=== PATIENT | female | born 1975 | race African-American/Black ===

== ENCOUNTER → 2016-04-09 | Outpatient (CLI) | payer OTHER ==
[~2016-04-09] MED LIST: ALPR.25 PO; ATEN-100 PO; ATEN25TA PO; HYDR-3583 PO; LORC10TA24 PO; PRAV40TA2 PO; SUVO1TAB4 PO; ZANTTAB9 PO
[2016-04-09 12:44] LABS: MEAN CELL VOLUME 67.5 FL (80.0-100.0); MEAN CORPUSCULAR HEMOGLOBIN 21.8 PG (27.0-34.0); MEAN CORPUSCULAR HGB CONC 32.3 % (32.0-36.0); PLATELET COUNT 262 TH/MM3 (150-450); RED BLOOD COUNT 5.63 MIL/MM3 (4.00-5.30); RED CELL DISTRIBUTION WIDTH 16.2 % (11.6-17.2); WHITE BLOOD COUNT 10.4 TH/MM3 (4.0-11.0)
[2016-04-09 12:46] LABS: REVIEW FLAG FINAL
[2016-04-09 13:01] LABS: CHLORIDE 105 MEQ/L (98-107); POTASSIUM 4.2 MEQ/L (3.5-5.1); SODIUM (NA) 140 MEQ/L (136-145)
[2016-04-09 13:10] LABS: ANION GAP 7 MEQ/L (5-15); BICARBONATE 28.1 MEQ/L (21.0-32.0)
[2016-04-09 13:12] LABS: BHCG SCREEN QUALITATIVE LESS THAN 1 MIU/ML (0-5)
== END ==
LOC: CPRE 12:04
PROVIDERS: ATTEND Plastic Surgery
DX: Z01.810 Encounter for preprocedural cardiovascular examination (principal); Z01.812 Encounter for preprocedural laboratory examination; N62 Hypertrophy of breast
CPT/HCPCS: 36415; 80051; 84703; 85027

== ENCOUNTER 2016-04-12 10:54 | Observation (INO) | payer OTHER ==
[~2016-04-12] VITALS: Ht 167.6 cm; Wt 103.3 kg
--- NOTE | 2016-04-12 09:56 | MH ---
cc: CHARLINE BECK M.D. DATE OF ADMISSION: 04/12/2016 CHIEF COMPLAINT Bilateral very large breast. The patient desiring elective breast reduction. HISTORY OF PRESENT ILLNESS This is a 40-year-old black female who has had very large breasts ever since she was a teenager. She has had two pregnancies, two children, age 21 and 16. She breast fed them nearly 2 years. Positive family history of breast cancer in maternal grandmother. Her mammogram has been okay in the past and the last one was in September 2015. The patient does self exams and no issue with health otherwise. She wishes to have the breast reduced. Her symptoms include heavy breast pulling on the chest, neck, shoulders and upper back and discomfort with daily activities. The patient has been wearing supportive bras, has taken [id number] pain medication as needed. She does complain of numbness in the arms at times. The patient currently is menopausal, no current issues with osteoporosis. The patient underwent detailed explanation of the procedure including diagrams, photographs, before and after pictures and the approximate volume of the breast to be removed estimated at 600 grams on each side. The possible risks and complications including those during surgery, anesthesia, possibility of bleeding, damage to the surrounding structures in the area of surgery, possible loss of nipple-areolar sensation, the intraoperative bleeding, also postoperative bleeding, hematoma, seroma, infection, skin flap necrosis, breast tissue necrosis, wound dehiscence, wound healing problems, possible chronic pain. Again, loss of nipple-areolar sensation or hypersensitivity, possible atrophic scar, hypertrophic scar, keloid formation, pigmented scars and asymmetry, future breast glandular ptosis with possibility of visual mismatch to the nipple and the breast and possible future surgeries for correction of the appearance which may not be covered by her health insurance. The patient understands the overall process may take several months to provide a final outcome. She is willing to go ahead with the surgery. The future mammographic screening will need to be resumed several months to a year after the surgery in order to provide a new baseline. Also if the pathology report on the breast tissue removed comes out to be of high oncologic risk, she will need to be treated further by an appropriate surgeon. PAST MEDICAL HISTORY 1. The patient's past medical history is negative for diabetes and heart conditions. 2. She does have a high blood pressure and high cholesterol. The highest blood pressure recorded was during her over 200 at that time. Currently under control with medications. 3. The patient does have varicose veins. 4. She is currently menopausal. No other major issues. MEDICATIONS Current medications include: 1. Atenolol. 2. Diet pills. ALLERGIES She is not allergic to any medications. SOCIAL HISTORY Social history is negative for smoking, never smoked. No alcohol or drug abuse. No HIV or hepatitis risk factors. PHYSICAL EXAMINATION GENERAL: The examination shows a 40-year-old black female with stable vital signs. The patient's height is 5 feet 6 inches tall, weight 225 pounds. HEAD/NECK: Head and neck shows clear sclerae. Equal pupils. Trachea is midline. No thyromegaly. Normal neck movements. CHEST: Chest has good expansion. Normal breathing. Normal heart sounds and breath sounds. EXTREMITIES: Upper and lower extremities are grossly intact. VITAL SIGNS: Vitals are normal. BREAST: The breast shows bilaterally large breasts with approximate volume at sitting 1200 to 1500 grams. The breasts do not have any dominant masses. Nipples are normal. No nipple discharge. The measurements show neck to the nipple distance 35.5 cm on the right, 31.5 on the left, nipple to inframammary fold 14.5 on the right and 15.0 on the left, nipple to the midline 14.5 on the right and 13.5 on the left. Chest transverse diameter is 20 cm on each side. Neck to the medial fold is 18 cm and neck to the inframammary fold is 24 cm on both sides. Medial breast folds are less than 1 cm apart, the medial fold to the nipple distance is 22 on the right and 18 on the left. Approximate volume on the right is 1600 grams, approximate volume on the left is 1400 grams. No skin rashes. No current infection. CLINICAL IMPRESSION Bilateral macromastia. PLAN Bilateral reduction mammoplasty. Laboratory tests will be reviewed and available on the chart. signed, not fully reviewed MD BONNIE Gonzales/LAURA /9:00 AM /9:29 AM [facility]
[~2016-04-12 10:54] MED LIST changes: -ALPR.25 PO; -ATEN-100 PO; -HYDR-3583 PO; -SUVO1TAB4 PO
[2016-04-12] MEDS ORDERED: PHENYLEPH/NS 1000 MCG/10 ML SYR IV ONE (12:00)
[2016-04-12] MEDS ORDERED: METOPROLOL TARTRATE 25 MG TAB PO PRN (12:00)
[2016-04-12] MEDS ORDERED: KETOROLAC TROMETHAMINE 60 MG/2 ML (IM) VIAL IM ONE (12:00)
[2016-04-12] MEDS ORDERED: ceFAZolin 1,000 MG/NS 100 ML IV SCH ×2 (12:00)
[2016-04-12] MEDS ORDERED: LACTATED RINGER'S 1000 ML INJ 1,000 ML IV ONE (12:00)
[2016-04-12] MEDS ORDERED: INSULIN HUMAN REGULAR 1,000 UNITS/10 ML VIAL SQ PRN (12:00)
[2016-04-12] MEDS ORDERED: SODIUM CHLORID 0.9% 500 ML IV SCH (12:00)
[2016-04-12] MEDS ORDERED: LACTATED RINGER'S 1000 ML IV SCH (12:00)
[2016-04-12] MEDS ORDERED: ePHEDrine/NS 25 MG/5 ML SYR IV ONE (12:00)
[2016-04-12] MEDS ORDERED: ONDANSETRON HCL 4 MG/2 ML VIAL IV PUSH ONE (12:00)
[2016-04-12] MEDS ORDERED: PROPOFOL 200 MG/20 ML AMP IV ONE (12:00)
[2016-04-12] MEDS ORDERED: NEOSTIGMINE 3 MG/3 ML SYR IV ONE (12:00)
[2016-04-12 12:02] VITALS: BP 139/98; PULSE 72; RESP 20; TEMP 98.3; O2SAT 98
[2016-04-12] MEDS ORDERED: ceFAZolin INJ 1,000 MG VIAL ONE (12:13)
[2016-04-12] MEDS ORDERED: SODIUM BICARBONATE 8.4% INJ 50 MEQ/50 ML SYR ONE (12:13)
[2016-04-12] MEDS ORDERED: LIDOCAINE 1%/EPINEPHrine 1:100,000 SOLN 30 ML VIAL ONE ×2 (12:13→12:16)
[2016-04-12] MEDS ORDERED: MIDAZOLAM HCL 2 MG/2 ML VIAL ONE (13:04)
[2016-04-12] MEDS ORDERED: FAMOTIDINE 20 MG/2 ML VIAL ONE (13:04)
[2016-04-12] MEDS ORDERED: EPINEPHrine HCL (1:1000) 30 MG/30 ML VIAL ONE (13:42)
[2016-04-12] MEDS ORDERED: SODIUM CHLOR 0.9% 1000 ML BAG XX ONE (13:51)
[2016-04-12] MEDS ORDERED: ceFAZolin INJ 1,000 MG VIAL IV ONE (16:30)
[2016-04-12] MEDS ORDERED: HYDROmorphone HCL PF 1 MG/ML VIAL IV PUSH PRN (17:30)
[2016-04-12] MEDS ORDERED: ACETAMINOPHEN/HYDROcodone 325 MG/10 MG TAB PO PRN (17:30)
[2016-04-12] MEDS ORDERED: fentaNYL CITRATE 250 MCG/5 ML AMP ONE ×2 (17:48→17:49)
[2016-04-12] MEDS: LACTATED RINGER'S 1000 ML INJ 1,000 ML IV SCH (18:00)
[2016-04-12] MEDS ORDERED: DO NOT ADM ANY ANTICOAGULANT DRUGS XX PRN (18:00)
[2016-04-12] MEDS ORDERED: ceFAZolin 2 GM PREMIX 50 ML IV SCH (18:00)
[2016-04-12] MEDS ORDERED: *LABETALOL HCL 100 MG/20 ML VIAL PERIprocedural Use ONLY ONE (18:20)
[2016-04-12] MEDS ORDERED: *ONDANSETRON 4 MG VIAL PERIprocedural Use ONLY ONE (18:53)
[2016-04-12] MEDS: ceFAZolin 2 GM PREMIX 50 ML IV SCH (19:00)
[2016-04-12] MEDS ORDERED: *HYDROmorphone PF 1 MG VIAL PERIprocedural Use ONLY ONE (19:05)
[2016-04-12 20:00] VITALS: BP 164/87; PULSE 68; RESP 20; TEMP 97; O2SAT 100
[2016-04-12] MEDS: PROMETHAZINE HCL 25 MG TAB PO PRN (22:23)
[2016-04-13] VITALS: BP 140/66; PULSE 61; RESP 20; TEMP 96.1; O2SAT 99
[2016-04-13 04:00] VITALS: BP 111/63; PULSE 64; RESP 22; TEMP 97.4; O2SAT 100
[2016-04-13] MEDS: LACTATED RINGER'S 1000 ML INJ 1,000 ML IV SCH ×2 (04:36→12:44)
[2016-04-13] MEDS: ceFAZolin 2 GM PREMIX 50 ML IV SCH ×2 (04:36→12:39)
[2016-04-13 08:00] VITALS: BP 133/86; PULSE 89; RESP 18; TEMP 98.8; O2SAT 99
[2016-04-13] MEDS: PROMETHAZINE HCL 25 MG TAB PO PRN (08:20)
--- NOTE | 2016-04-13 08:32 | EKG ---
Date Performed: 04/12/2016 Time Performed: 12:18:40 PTAGE: 40 years EKG: Sinus rhythm WITH SINUS ARRHYTHMIA BORDERLINE LEFT AXIS DEVIATION BORDERLINE ECG PREVIOUS TRACING : 10/01/2008 12.30 Compared to prior tracing no significant change DOCTOR: Rahat Mancini Interpretating Date/Time 04/13/2016 08:31:02
--- NOTE | 2016-04-13 09:32 | PD.PLAS.PN ---
Subjective Remarks Patient doing very well. Walking around the hallways Very little to no pain Happy with shape and symmetry / volume. Breasts soft, no hematoma, flaps look good. Nipples sensitive to touch on Right, left side not so much. DENY drains to stay 3-5 days. DC home today FU in office Tuesday Vital Signs Date Time Temp Pulse Resp B/P Pulse Ox O2 Delivery O2 Flow Rate FiO2 04/13/16 04:00 97.4 64 22 111/63 100 04/13/16 00:00 96.1 61 20 140/66 99 04/12/16 20:00 97.0 68 20 164/87 100 04/12/16 18:30 64 16 155/85 98 Room Air 04/12/16 18:15 66 16 170/87 96 Room Air 04/12/16 18:00 70 16 151/80 96 Room Air 04/12/16 17:30 97.5 74 16 140/88 97 04/12/16 12:02 98.3 72 20 139/98 98 I/O 04/12/16 04/12/16 04/12/16 04/13/16 04/13/16 04/13/16 07:00 15:00 23:00 07:00 15:00 23:00 Intake Total 100 ml 440 ml 1000 ml Output Total 315 ml 250 ml 190 ml Balance -215 ml 190 ml 810 ml Intake Oral 440 ml IV Total 100 ml 1000 ml Output Urine Total 300 ml 250 ml 150 ml Drainage Total 15 ml 40 ml # Bowel Movements 0 Brian Rascon MD Apr 13, 2016 09:32
[2016-04-13] MEDS ORDERED: HYDR-3583 PO (09:33)
[2016-04-13 09:50] VITALS: O2SAT 95
--- NOTE | 2016-04-14 14:36 | MP ---
cc: CHARLINE BECK M.D. DATE OF SURGERY: 04/12/2016 PREOPERATIVE DIAGNOSIS Bilateral macromastia with asymmetry. POSTOPERATIVE DIAGNOSIS Bilateral macromastia with asymmetry. OPERATION Bilateral reduction mammoplasty. SURGEON Dr. Beck ANESTHESIA General. INDICATIONS A 40-year-old black female with large breasts, right side approximately 20% larger than the left, desiring elective breast reduction. She underwent a detailed explanation of the procedure including the risks and complications and has agreed to proceed with the surgery. PROCEDURE The patient was brought to the operating room, was given supine position. Anesthesia was started. Prep and drape was done. IV antibiotic had been given. The preoperative markings were reinforced. The inferior pedicle design was used. The skin on the inferior pedicle and the lateral and medial extensions was de-epithelialized using a tumescent technique. A tumescent solution of saline and lidocaine with epinephrine was used. Aranda pattern flaps were also injected with solution for hemostasis and elevated off the breasts. The lateral extent of the breast tissue was raised from the lateral to medial direction to the point of the anterior axillary line just above the fascia. The de-epithelialized skin pedicle triangle was elevated off the breast and preserved. The breast reduction was carried out from the lateral and superolateral aspect. A small amount of tissue was also taken from the superior medial aspect. Hemostasis was completed. The lateral dermal flap was used to line up with the anterior axillary line with Vicryl sutures. The V-flaps were brought over to the center point and tacked in place. Cali-Mulligan drains were used. The inverted-T design scar closure was completed. The nipples were exteriorized at 10 cm position from the inframammary fold, symmetrical on both sides. The total reduction achieved on the right side was 655 grams and on the left was 455 grams. Intraoperative blood loss was less than 50 cc. All the areas were closed with Vicryl and subcuticular Prolene sutures, cleaned and sterile dressing was applied. Drains were secured and activated. The patient remained stable through the procedure. No complications. signed, not fully reviewed MD BONNIE Gonzales/YANY /4:18 AM /2:28 PM MTDDaniel
== END 2016-04-13 16:01 | disposition home or self-care (01) ==
LOC: HSDC 10:54 → N07A 19:26
PROVIDERS: ADMIT Plastic Surgery; ATTEND Plastic Surgery
DX: N62 Hypertrophy of breast (principal); I10 Essential (primary) hypertension; E78.00 Pure hypercholesterolemia, unspecified; Z80.3 Family history of malignant neoplasm of breast
CPT/HCPCS: 00402; 19318; 88305; 93005; G0378; J0171; J0690; J1170; J1885; J2250; J2370; J2405; J2710; J3010; J7030; J7120; Q0169; 88307

== ENCOUNTER → 2016-07-28 | Day surgery (SDC) | payer OTHER ==
[~2016-07-28] MED LIST changes: +HYDR-3583 PO; +LACTATED RINGER'S 1000 ML INJ 1,000 ML ONE; +PROPOFOL 500 MG/50 ML BTL IV ONE
--- NOTE | 2016-07-28 12:56 | GIPROC ---
[facility] [address] [facility], [address] COLONOSCOPY PROCEDURE REPORT EXAM DATE: 07/28/2016 PATIENT NAME: Em Ramsay MR #: [id number] BIRTHDATE: 1975 ENDOSCOPIST: Avinash Corey MD ORDER #: [id number] SUPERVISOR PACKING ROOM: Britney Cooper RN STATUS: outpatient INDICATIONS: The patient is a 41 yr old female here for a colonoscopy due to patient's immediate family history of colon cancer PROCEDURE PERFORMED: Colonoscopy with polypectomy MEDICATIONS: None and Per Anesthesia. PREP QUALITY: fair ESTIMATED BLOOD LOSS: None CONSENT: The patient understands the risks and benefits of the procedure and understands that these risks include, but are not limited to: sedation, allergic reaction, infection, perforation and/or bleeding. Alternative means of evaluation and treatment include, among others: physical exam, x-rays, and/or surgical intervention. The patient elects to proceed with this endoscopic procedure. medical equipment was checked for proper function. Hand hygiene and appropriate measures for infection prevention was taken. After the risks, benefits and alternatives of the procedure were thoroughly explained, Informed consent was verified, confirmed and timeout was successfully executed by the treatment team. A digital exam revealed no abnormalities of the rectum The EC-3490Li ([id number]) endoscope was introduced through the anus and advanced to the cecum, which was identified by both the appendix and ileocecal valve. The instrument was then slowly withdrawn as the colon was fully examined. COLON FINDINGS: A medium sized smooth sessile polyp was found in the rectum. A polypectomy was performed with a cold snare. The resection was complete and the polyp tissue was completely retrieved. The colon mucosa was otherwise normal. Retroflexed views revealed no abnormalities The scope was then completely withdrawn from the patient and the procedure terminated. PROCEDURE WITHDRAWAL TIME:8.5minutes ADVERSE EVENTS: There were no complications. IMPRESSIONS: 1. A medium sized sessile polyp was found in the rectum; polypectomy was performed with a cold snare 2. The colon mucosa was otherwise normal 3. Retroflexed views revealed no abnormalities 4. Revealed no abnormalities of the rectum RECOMMENDATIONS: 1. Await biopsy results. Biopsy results will not be ready for 7-10 days. If you don't hear from us in two weeks, call our office for results. 2. High fiber diet 3. Yearly hemoccult 4. Follow-up: GI Clinic PRN RECALL: Return 5 years Colonoscopy Avinash Corey MD eSigned: Avinash Corey MD 07/28/2016 12:55 PM cc: Min Nguyen M.D and Lauro [facility]
--- NOTE | 2016-07-28 13:03 | GIPROC ---
[facility] [address], [address] EGD PROCEDURE REPORT EXAM DATE: 07/28/2016 PATIENT NAME: Em Ramsay MR #: [id number] BIRTHDATE: 1975 ATTENDING: Avinash Corey MD ORDER #: [id number] DATA ENTRY TECHNICIAN: Britney Cooper RN STATUS: outpatient INDICATIONS: The patient is a 41 yr old female here for an EGD due to history of esophageal reflux PROCEDURE PERFORMED: EGD w/ biopsy MEDICATIONS: None, Per Anesthesia, None, and Per Anesthesia. TOPICAL ANESTHETIC: CONSENT: The patient understands the risks and benefits of the procedure and understands that these risks include, but are not limited to: sedation, allergic reaction, infection, perforation and/or bleeding. Alternative means of evaluation and treatment include, among others: physical exam, x-rays, and/or surgical intervention. The patient elects to proceed with this endoscopic procedure. medical equipment was checked for proper function. Hand hygiene and appropriate measures for infection prevention was taken. After the risks, benefits and alternatives of the procedure were thoroughly explained, Informed consent was verified, confirmed and timeout was successfully executed by the treatment team. The patient was anesthetized with topical anesthesia and the EC-3490Li ([id number]) endoscope was introduced through the mouth and advanced to the second portion of the duodenum. Retroflexed views revealed no abnormalities The gastroscope was then slowly withdrawn and removed. ESOPHAGUS: The mucosa of the esophagus appeared normal. Multiple biopsies were performed. A Monreal esophageal pH monitor was deployed successfully 36cm from the incisors. Placement was confirmed endoscopically. The endoscopy was otherwise normal. ADVERSE EVENTS: There were no complications. IMPRESSIONS: 1. The esophagus appeared normal; multiple biopsies were performed 2. Normal endoscopy otherwise 3. Retroflexed views revealed no abnormalities RECOMMENDATIONS: 1. Await biopsy results. Biopsy results will not be ready for 7-10 days. If you don't hear from us in two weeks, call our office for biopsy results. 2. Anti-reflux regimen 3. Continue carafate 4. Follow-up: GI clinic 3 week(s) PATIENT CONDITION: stable DISPOSITION: Home REPEAT EXAM: Avinash Corey MD eSigned: Avinash Corey MD 07/28/2016 1:03 PM cc: Min Solares [facility] PATIENT NAME: Em Ramsay MR#: [id number]
== END | disposition home or self-care (01) ==
LOC: ESDC 10:00
PROVIDERS: ATTEND Internal Medicine Gastroenterology
DX: Z12.11 Encounter for screening for malignant neoplasm of colon (principal); Z80.0 Family history of malignant neoplasm of digestive organs; K21.0 Gastro-esophageal reflux disease with esophagitis; K62.1 Rectal polyp; K29.50 Unspecified chronic gastritis without bleeding
CPT/HCPCS: 00740; 00810; 43239; 45385; 88305; 88312; J3010; J7120

== ENCOUNTER → 2016-10-29 | Outpatient (CLI) | payer OTHER ==
[~2016-10-29] MED LIST changes: -LACTATED RINGER'S 1000 ML INJ 1,000 ML ONE; -PROPOFOL 500 MG/50 ML BTL IV ONE; +ZOFR8TAB PO
[2016-10-29 11:19] LABS: AUTOMATED NEUTROPHIL # 7.6 TH/MM3 (1.8-7.7); BASOPHIL # 0.1 TH/MM3 (0-0.2); BASOPHIL % 0.5 % (0.0-2.0); EOSINOPHIL # 0.2 TH/MM3 (0-0.4); EOSINOPHIL % 1.5 % (0.0-4.0); HEMATOCRIT 38.7 % (35.0-46.0); HEMO FLAGS DIFF FINAL; LYMPH % 26.7 % (9.0-44.0); LYMPHOCYTE # 3.2 TH/MM3 (1.0-4.8); MEAN CELL VOLUME 67.7 FL (80.0-100.0); MEAN CORPUSCULAR HEMOGLOBIN 21.4 PG (27.0-34.0); MEAN CORPUSCULAR HGB CONC 31.7 % (32.0-36.0); MONO % 7.9 % (0.0-8.0); NEUT % 63.4 % (16.0-70.0); PLATELET COUNT 310 TH/MM3 (150-450); RED BLOOD COUNT 5.72 MIL/MM3 (4.00-5.30); RED CELL DISTRIBUTION WIDTH 16.1 % (11.6-17.2)
[2016-10-29 11:22] LABS: BLOOD, URINE SMALL (NEG); COMMENT (UR) CULT NOT INDICATED; CULTURE IF INDICATED CULT NOT INDICATED; GLUCOSE,URINE NEG (NEG); HYALINE CAST, URINE 1 /lpf (RARE); KETONE, URINE NEG (NEG); MUCUS URINE FEW /lpf (OCC); NITRITE,URINE NEG (NEG); PH, URINE 5.5 (5.0-8.5); SQUAMOUS EPITHELIAL CELL URINE 22 /hpf (0-5); TRANSITIONAL EPI CELLS, URINE <1 /hpf; URINE COLOR YELLOW (YELLW/STRAW)
[2016-10-29 11:34] LABS: ANION GAP 10 MEQ/L (5-15); AST (GOT) 14 U/L (15-37); BICARBONATE 25.2 MEQ/L (21.0-32.0); BLOOD UREA NITROGEN 11 MG/DL (7-18); CHLORIDE 105 MEQ/L (98-107); GLOMERULAR FILTRATION RATE 107 ML/MIN (>89); GLUCOSE,FASTING 76 MG/DL (74-99); MAGNESIUM 1.9 MG/DL (1.5-2.5); POTASSIUM 3.6 MEQ/L (3.5-5.1); SODIUM (NA) 140 MEQ/L (136-145)
[2016-10-29 12:01] LABS: ALKALINE PHOSPHATASE 91 U/L (45-117); ALT (GPT) 17 U/L (10-53); FERRITIN 42 NG/ML (8-252); FREE T3 2.62 PG/ML (2.18-3.98); HDL CHOLESTEROL 38.8 MG/DL (40.0-60.0); TOTAL BILIRUBIN ADULT 0.5 MG/DL (0.2-1.0); TRANSFERRIN IRON PROFILE 257 MG/DL (200-360)
[2016-10-29 12:36] LABS: LDL CHOLESTEROL 100 MG/DL (0-99)
== END ==
LOC: CLAB 10:30
PROVIDERS: ATTEND Surgery
DX: E66.9 Obesity, unspecified (principal)
CPT/HCPCS: 36415; 80053; 80061; 81001; 82306; 82607; 82728; 82746; 83540; 83550; 83735; 83970; 84100; 84439; 84443; 84481; 84590; 85025

== ENCOUNTER → 2016-11-11 | Outpatient (CLI) | payer OTHER ==
--- NOTE | 2016-11-12 12:07 | EKG ---
Date Performed: 11/11/2016 Time Performed: 15:09:57 PTAGE: 41 years EKG: Sinus rhythm POSSIBLE LEFT ATRIAL ENLARGEMENT POSSIBLE RIGHT VENTRICULAR CONDUCTION DELAY LOSS OF R-WAVE IN V2 WV OBABLY DUE TO LEAD PLACEMENT COMPARED TO THE PRIOR TRACING. ABNORMAL ECG PREVIOUS TRACING : 04/12/2016 12.18 DOCTOR: Vishal Kim Interpretating Date/Time 11/12/2016 12:07:16
== END ==
LOC: CLAB 13:28
PROVIDERS: ATTEND Surgery
DX: E66.9 Obesity, unspecified (principal); R94.31 Abnormal electrocardiogram [ECG] [EKG]
CPT/HCPCS: 87338; 93005

== ENCOUNTER 2016-11-13 18:53 | Emergency (ER) | payer OTHER ==
[~2016-11-13] VITALS: Ht 157.5 cm; Wt 105.2 kg
[~2016-11-13 18:53] MED LIST changes: -ZOFR8TAB PO
[2016-11-13 19:01] VITALS: BP 120/67; PULSE 92; RESP 18; TEMP 98.6; O2SAT 98
--- NOTE | 2016-11-13 20:43 | PD ---
HPI Chief Complaint: GI Complaint Time Seen by Provider: 20:30 Travel History International Travel<30 days: No Contact w/Intl Traveler<30days: No Traveled to known affect area: No History of Present Illness HPI The patient is a 41-year-old female that complains of nausea without vomiting for 1 day. She denies any fever. She has some slight bilateral lower abdominal pain. Her pain as a 5/10 and dull pain in the lower quadrants. She has had a hysterectomy and laparoscopic cholecystectomy and surgery for lysis of adhesions. She still has her appendix. She states she has not had a bowel movement in 5 days and normally goes on a daily basis. She took some Stacy- Colace without result. PFSH Past Medical History Cancer: No Cardiovascular Problems: No Diabetes: No Endocrine: No Gastrointestinal Disorders: Yes (IBS, ACID REFLUX) Glaucoma: No Genitourinary: No Hepatitis: No Hiatal Hernia: Yes Hypertension: Yes (on med) Immune Disorder: No Musculoskeletal: No Neurologic: No Psychiatric: No Reproductive: No Respiratory: No Thyroid Disease: No Tetanus Vaccination: < 5 Years Influenza Vaccination: Yes PNEUMOCCOCAL Vaccine (Year): 1 ?: Not : 2 Para: 2 Past Surgical History Abdominal Surgery: Yes (BJORN. 1999, DX LAP. 2008) AICD: No Body Medical Devices: NONE Cardiac Surgery: No Cholecystectomy: Yes Ear Surgery: No Endocrine Surgery: No Eye Surgery: No Genitourinary Surgery: Yes (hemmoroidectomy) Gynecologic Surgery: Yes (HYSTERECTOMY 1999) Hysterectomy: Yes Joint Replacement: No Oral Surgery: No Pacemaker: No Thoracic Surgery: No Other Surgery: Yes (mammoplasty) Social History Alcohol Use: No Tobacco Use: No Substance Use: No Allergies-Medications (Allergen,Severity, Reaction): Uncoded Allergies: WALNUTS (Allergy, Severe, 08/27/09) ANPHYLACTIC Reported Meds & Prescriptions Reported Meds & Active Scripts Active Reported Atenolol 25 Mg Tab 12.5 Mg PO DAILY Pravastatin 40 Mg Tab 40 Mg PO HS Review of Systems Except as stated in HPI: all other systems reviewed are Neg Physical Exam Narrative GENERAL: The patient is obese, alert, oriented 3 and slight apparent distress with her bilateral lower abdominal pain. Her vital signs are normal. SKIN: Focused skin assessment warm/dry. No skin rash is seen. HEAD: Atraumatic. Normocephalic. EYES: Pupils equal and round. No scleral icterus. No injection or drainage. ENT: No nasal bleeding or discharge. Mucous membranes pink and moist. NECK: Trachea midline. No JVD. CARDIOVASCULAR: Regular rate and rhythm. No murmur appreciated. RESPIRATORY: No accessory muscle use. Clear to auscultation. Breath sounds equal bilaterally. GASTROINTESTINAL: Abdomen soft, with slight tenderness to direct palpation in the bilateral lower quadrants, nondistended. Hepatic and splenic margins not palpable. No guarding or rebound is present. MUSCULOSKELETAL: No obvious deformities. No clubbing. No cyanosis. No edema. NEUROLOGICAL: Awake and alert. No obvious cranial nerve deficits. Motor grossly within normal limits. Normal speech. PSYCHIATRIC: Appropriate mood and affect; insight and judgment normal. RECTAL EXAM: No masses or tenderness, stool is brown and guaiac-negative. No hemorrhoids are seen and, specifically, there are no fecal impactions present. Data Data Last Documented VS Vital Signs Date Time Temp Pulse Resp B/P (MAP) Pulse Ox O2 Delivery O2 Flow Rate FiO2 11/13/16 21:09 98 Room Air 11/13/16 19:01 98.6 92 18 Orders Orders Complete Blood Count With Diff (11/13/16 20:37) Comprehensive Metabolic Panel (11/13/16 20:37) Lipase (11/13/16 20:37) Iv Access Insert/Monitor (11/13/16 20:37) Ecg Monitoring (11/13/16 20:37) Oximetry (11/13/16 20:37) Sodium Chloride 0.9% Flush (Ns Flush) (11/13/16 20:45) Fleets Enema (Adult) (Fleets Enema (Adul (11/13/16 20:45) Magnesium Citrate Liq (Citroma Liq) (11/13/16 20:45) Labs Laboratory Tests Test 11/13/16 20:57 White Blood Count 11.2 TH/MM3 Red Blood Count 5.46 MIL/MM3 Hemoglobin 11.8 GM/DL Hematocrit 37.0 % Mean Corpuscular Volume 67.9 FL Mean Corpuscular Hemoglobin 21.7 PG Mean Corpuscular Hemoglobin Concent 31.9 % Red Cell Distribution Width 15.1 % Platelet Count 318 TH/MM3 Mean Platelet Volume 9.1 FL Neutrophils (%) (Auto) 56.6 % Lymphocytes (%) (Auto) 31.7 % Monocytes (%) (Auto) 7.1 % Eosinophils (%) (Auto) 2.4 % Basophils (%) (Auto) 2.2 % Neutrophils # (Auto) 6.3 TH/MM3 Lymphocytes # (Auto) 3.6 TH/MM3 Monocytes # (Auto) 0.8 TH/MM3 Eosinophils # (Auto) 0.3 TH/MM3 Basophils # (Auto) 0.2 TH/MM3 CBC Comment DIFF FINAL Differential Comment Blood Urea Nitrogen 14 MG/DL Creatinine 0.87 MG/DL Random Glucose 91 MG/DL Total Protein 6.8 GM/DL Albumin 3.0 GM/DL Calcium Level 8.9 MG/DL Alkaline Phosphatase 91 U/L Aspartate Amino Transf (AST/SGOT) 10 U/L Alanine Aminotransferase (ALT/SGPT) 14 U/L Total Bilirubin 0.2 MG/DL Sodium Level 139 MEQ/L Potassium Level 4.6 MEQ/L Chloride Level 105 MEQ/L Carbon Dioxide Level 27.9 MEQ/L Anion Gap 6 MEQ/L Estimat Glomerular Filtration Rate 86 ML/MIN Lipase 104 U/L [facility] Medical Decision Making Medical Screen Exam Complete: Yes Emergency Medical Condition: Yes Medical Record Reviewed: Yes Interpretation(s) The complete metabolic profile shows a GFR of 86 and albumin of 3.0 but is otherwise normal. The lipase is normal. The CBC shows a white count of 11,200 but is otherwise unremarkable except low MCV, MCH and MCHC. Differential Diagnosis Viral syndrome, colitis, acute appendicitis-unlikely, diverticulitis, urinary tract infection, dehydration, electrolyte disorder, anemia Narrative Course It is now 9:37 PM and the patient feels much better. She did have a small bowel movement. This appears to be a viral syndrome. She will be given Zofran 8 mg to take 3 times a day and follow-up with Dr. Nguyen on Tuesday. Diagnosis Primary Impression: Viral syndrome Additional Instructions: Increase liquid intake and follow-up with Dr. Nguyen on Tuesday. Med/Other Pt SpecificInfo: Prescription(s) given Scripts Ondansetron (Zofran) 8 Mg Tab 8 MG PO TID for Nausea/Vomiting, #20 TAB 0 Refills Prov: Renzo Frazier MD 11/13/16 Disposition: DISCHARGE HOME Condition: Stable Renzo Frazier MD Nov 13, 2016 20:43
[2016-11-13] MEDS ORDERED: SOD PHOSPHATE/SOD BIPHOSPHATE (ADULT) ENEMA 133ML RECTAL ONE (20:45)
[2016-11-13] MEDS ORDERED: SODIUM CHLORIDE 0.9% FLUSH 10 ML FLUSH IV FLUSH PRN (20:45)
[2016-11-13] MEDS ORDERED: MAGNESIUM CITRATE SOLN 300 ML BTL PO ONE (20:45)
[2016-11-13 21:04] LABS: AUTOMATED NEUTROPHIL # 6.3 TH/MM3 (1.8-7.7); BASOPHIL # 0.2 TH/MM3 (0-0.2); BASOPHIL % 2.2 % (0.0-2.0); EOSINOPHIL # 0.3 TH/MM3 (0-0.4); EOSINOPHIL % 2.4 % (0.0-4.0); LYMPH % 31.7 % (9.0-44.0); LYMPHOCYTE # 3.6 TH/MM3 (1.0-4.8); MEAN CELL VOLUME 67.9 FL (80.0-100.0); MEAN CORPUSCULAR HEMOGLOBIN 21.7 PG (27.0-34.0); MEAN CORPUSCULAR HGB CONC 31.9 % (32.0-36.0); MONO % 7.1 % (0.0-8.0); NEUT % 56.6 % (16.0-70.0); PLATELET COUNT 318 TH/MM3 (150-450); RED BLOOD COUNT 5.46 MIL/MM3 (4.00-5.30); RED CELL DISTRIBUTION WIDTH 15.1 % (11.6-17.2); WHITE BLOOD COUNT 11.2 TH/MM3 (4.0-11.0)
[2016-11-13 21:09] VITALS: O2SAT 98
[2016-11-13 21:09] LABS: HEMO FLAGS DIFF FINAL
[2016-11-13 21:13] LABS: CHLORIDE 105 MEQ/L (98-107); POTASSIUM 4.6 MEQ/L (3.5-5.1); SODIUM (NA) 139 MEQ/L (136-145)
[2016-11-13 21:17] LABS: ANION GAP 6 MEQ/L (5-15); BICARBONATE 27.9 MEQ/L (21.0-32.0); BLOOD UREA NITROGEN 14 MG/DL (7-18)
[2016-11-13 21:20] LABS: ALT (GPT) 14 U/L (10-53); AST (GOT) 10 U/L (15-37); GLOMERULAR FILTRATION RATE 86 ML/MIN (>89)
[2016-11-13 21:21] LABS: TOTAL BILIRUBIN ADULT 0.2 MG/DL (0.2-1.0)
[2016-11-13 21:22] LABS: ALKALINE PHOSPHATASE 91 U/L (45-117)
[2016-11-13] MEDS ORDERED: ZOFR8TAB PO (21:40)
== END 2016-11-13 21:57 | disposition home or self-care (01) ==
LOC: PHED 18:53
DX: B34.9 Viral infection, unspecified (principal)
CPT/HCPCS: 80053; 83690; 85025; 99283

== ENCOUNTER → 2017-08-18 | Outpatient (CLI) | payer OTHER ==
[~2017-08-18] MED LIST changes: -HYDR-3583 PO; -LORC10TA24 PO; -ZANTTAB9 PO; +ZOFR8TAB PO
[2017-08-18 09:59] LABS: AUTOMATED NEUTROPHIL # 6.7 TH/MM3 (1.8-7.7); BASOPHIL # 0.1 TH/MM3 (0-0.2); BASOPHIL % 0.7 % (0.0-2.0); EOSINOPHIL # 0.2 TH/MM3 (0-0.4); EOSINOPHIL % 1.7 % (0.0-4.0); HEMATOCRIT 38.2 % (35.0-46.0); HEMOGLOBIN 12.2 GM/DL (11.6-15.3); LYMPH % 31.9 % (9.0-44.0); LYMPHOCYTE # 3.6 TH/MM3 (1.0-4.8); MEAN CELL VOLUME 67.1 FL (80.0-100.0); MEAN CORPUSCULAR HEMOGLOBIN 21.5 PG (27.0-34.0); MEAN PLATELET VOLUME 8.7 FL (7.0-11.0); MONO % 6.2 % (0.0-8.0); MONOCYTE # 0.7 TH/MM3 (0-0.9); NEUT % 59.5 % (16.0-70.0); PLATELET COUNT 331 TH/MM3 (150-450); RED CELL DISTRIBUTION WIDTH 16.2 % (11.6-17.2); WHITE BLOOD COUNT 11.2 TH/MM3 (4.0-11.0)
[2017-08-18 10:46] LABS: ALBUMIN 3.4 GM/DL (3.4-5.0); AST (GOT) 16 U/L (15-37); BICARBONATE 26.8 MEQ/L (21.0-32.0); BLOOD UREA NITROGEN 13 MG/DL (7-18); CALCIUM 8.5 MG/DL (8.5-10.1); CHLORIDE 105 MEQ/L (98-107); CHOLESTEROL 226 MG/DL (120-200); CREATININE 0.84 MG/DL (0.50-1.00); GLOMERULAR FILTRATION RATE 89 ML/MIN (>89); GLUCOSE,FASTING 79 MG/DL (74-99); SODIUM (NA) 139 MEQ/L (136-145)
[2017-08-18 10:57] LABS: ALKALINE PHOSPHATASE 88 U/L (45-117); ALT (GPT) 18 U/L (10-53); CHOLESTEROL/ HDL RATIO 6.27 RATIO; FREE T4 1.16 NG/DL (0.76-1.46); LDL CHOLESTEROL 161 MG/DL (0-99); TOTAL BILIRUBIN ADULT 0.2 MG/DL (0.2-1.0); TOTAL PROTEIN 7.1 GM/DL (6.4-8.2); TRIGLYCERIDES 143 MG/DL (42-150)
== END ==
LOC: CLAB 09:19
PROVIDERS: ATTEND Family Medicine
DX: I10 Essential (primary) hypertension (principal); F41.1 Generalized anxiety disorder; E78.2 Mixed hyperlipidemia
CPT/HCPCS: 36415; 80053; 80061; 84439; 84443; 85025